=== PATIENT | male | born 1995 | race African-American/Black ===

== ENCOUNTER 2020-04-29 03:58 | Emergency (ER) | payer SELFPAY ==
--- NOTE | 2020-04-29 07:39 | RAD ---
EXAM: 3 views of the right ankle HISTORY: Ankle pain COMPARISON: None FINDINGS: 3 views of the right ankle shows no evidence of acute fracture or dislocation. No soft tiss ue swelling is seen. No degenerative changes are present. IMPRESSION: No evidence of acute osseous abnormality.
== END 2020-04-29 04:48 | disposition home or self-care (01) ==
LOC: MADERS 03:58
DX: S93.401A Sprain of unspecified ligament of right ankle, initial encounter (principal); F17.210 Nicotine dependence, cigarettes, uncomplicated; W20.8XXA Other cause of strike by thrown, projected or falling object, initial encounter